=== PATIENT | male | born 1990 | race Caucasian/White ===

== ENCOUNTER 2019-01-03 14:21 | Observation (INO) | payer OTHER ==
[~2019-01-03] VITALS: Ht 170.2 cm; Wt 84.5 kg
[2019-01-03] MEDS ORDERED: KETOROLAC 30 MG/ML VIAL (J1885) IV ONE (14:45)
[2019-01-03] MEDS ORDERED: ALPR0.5T3 PO (15:04)
[2019-01-03] MEDS ORDERED: BRIN10TA4 PO (15:04)
[2019-01-03 15:11] LABS: BASO # 0.1 10^3/uL (0.0-0.2); BASO % 0.3 % (0.0-1.0); HEMATOCRIT 45.2 % (42.0-52.0); HEMOGLOBIN 15.8 g/dl (13.5-17.5); LYMPH # 1.4 10^3/uL (1.5-4.5); LYMPH % 8.7 % (24.0-44.0); MEAN CORPUSCULAR HEMOGLOBIN 30.6 pg (27.0-33.0); MEAN CORPUSCULAR VOLUME 87.4 fl (80.0-96.0); MONO # 0.8 10^3/uL (0.0-0.8); MONO % 4.9 % (0.0-5.0); NEUTROPHILS # 14.1 10^3/uL (1.8-7.7); NEUTROPHILS % 85.8 % (36.0-66.0); PLATELET COUNT, AUTOMATED 401 10^3/uL (150-450); RED BLOOD COUNT 5.17 10^6/uL (4.30-6.10); WHITE BLOOD COUNT 16.5 10^3/uL (4.0-10.0)
[2019-01-03] MEDS ORDERED: ACETAMINOPHEN *IV* 1,000 MG in IV 1 EA IV ONE (15:15)
[2019-01-03] MEDS ORDERED: ISOVUE-370 76% 100ML VIAL (Q9967) As Ordered ONE ×2 (15:24→15:49)
[2019-01-03 15:26] LABS: BLOOD UREA NITROGEN 16 MG/DL (7-18); CALCIUM LEVEL 9.9 MG/DL (8.5-10.1); CARBON DIOXIDE LEVEL 24 MEQ/L (21-32); CHLORIDE LEVEL 103 MEQ/L (98-107); CREATININE FOR GFR 1.07 MG/DL (0.70-1.30); GLOMERULAR FILTRATION RATE > 60.0 (>60); GLUCOSE, FASTING 121 MG/DL (70-100); POTASSIUM SERUM 3.6 MEQ/L (3.5-5.1); SODIUM LEVEL 139 MEQ/L (136-145)
[2019-01-03] MEDS ORDERED: METOCLOPRAMIDE INJ 10MG/2ML VIAL (J2765) IV ONE (15:30)
--- NOTE | 2019-01-03 16:27 | REP ---
CT ABDOMEN AND PELVIS WITHOUT CONTRAST: CT abdomen and pelvis was performed without oral or IV contrast. Sagittal and coronal reconstruction images are performed. In the visualized lung bases there is a nodular infiltrate in the right lower lobe. There also appear to be enlarged hilar and mediastinal lymph nodes present. The heart is not enlarged. There is no pleural effusion. The liver, spleen, adrenals, pancreas and left kidney are unremarkable. There is mild right hydroureteronephrosis. No stone is seen in the ureter or bladder. I suspect a recent calculus has passed through the right urinary tract and bladder No bladder calculus is seen. Urinary bladder is relatively collapsed. There is no abdominal aortic aneurysm. There is no periaortic adenopathy. There is no free air or free fluid. There is no bowel wall thickening. There is no evidence of appendicitis, the appendix is normal. No pelvic mass is seen. IMPRESSION: Mild right hydroureteronephrosis. No ureteral or bladder calculus seen at this time, likely there was a stone that has recently passed. Note is made of bilateral hilar and mediastinal adenopathy with a nodular infiltrate in the right lower lobe. Recommend CT of the chest with IV contrast to further evaluate. Electronically Signed by Harish Paniagua MD 01/04/2019 09:30 A
--- NOTE | 2019-01-03 17:00 | REP ---
CT CHEST WITH IV CONTRAST: TECHNIQUE: Axial contrast enhanced images from the thoracic inlet to the upper abdomen using 100 mL Isovue 370 intravenous contrast material with multiplanar reformations. Extensive mediastinal adenopathy is seen as well as bilateral hilar adenopathy. Largest lymph node in the AP window measures 2.4 cm in short axis. In the inferior left hilum the largest lymph node measures 2.5 cm in short axis. Largest right hilar lymph node measures 2.5 cm in short axis. No axillary adenopathy is seen. Abdominal aorta is normal in caliber. There is no cardiomegaly. There is no pleural or pericardial effusion. There are mild ill-defined patchy infiltrates in both upper lobes. There are also some mild bilateral upper lobe reticular nodular opacities. There is a somewhat nodular patchy infiltrate in the superior segment of the right lower lobe. The inferior lung bases appear spared. IMPRESSION: Extensive mediastinal and bilateral hilar adenopathy. There are mild patchy bilateral upper lobe infiltrates with scattered mild reticular nodular opacities in both upper lobes. There is mild patchy ill-defined nodular infiltrate in the superior segment of the right lower lobe. Differential diagnosis would include multiple neoplastic and non-neoplastic etiologies. Recommend pulmonary consultation. Electronically Signed by Harish Paniagua MD 01/04/2019 09:31 A
[2019-01-03 17:05] LABS: ALBUMIN 4.4 GM/DL (3.2-5.2); ALT/SGPT 28 U/L (12-78); BILIRUBIN,TOTAL 1.2 MG/DL (0.2-1.0); LDH LACTATE DEHYDROGENASE 148 U/L (87-241); TOTAL PROTEIN 7.1 GM/DL (6.4-8.2)
[2019-01-03] MEDS ORDERED: ACETAMINOPHEN TAB 650MG DOSE (2X325MG) PO PRN (19:15)
[2019-01-03] MEDS: ALPRAZolam 0.5 MG TAB PO SCH (19:56)
--- NOTE | 2019-01-03 21:51 | HPEPDOC ---
General Date of Admission Jan 03, 2019 at 14:22 Date of Service: Jan 03, 2019 Chief Complaint The patient is a 28-year-old male admitted with a reason for visit of Hilar Adenopathy. Source: Patient Exam Limitations: No limitations Timing/Duration: Unsure Severity: Mild Associated Symptoms: Other (the patient has had flank pain associated with his renal stone, but otherwise no symptoms at all) History of Present Illness This is a 28-year-old male who presented with flank pain, nausea and vomiting. The patient has a history of nephrolithiasis with prior episode in 2014. Patient underwent imaging upon presentation to the emergency room and was found to have right hydroureteronephrosis. It appears he has already passed his renal stone. He did not note any other associated symptoms such as dysuria or hematuria. Upon radiologic evaluation. There is incidental finding of hilar adenopathy and some other unusual pulmonary lesions. Concern was raised for infection versus malignancy. The patient relates that at times he feels cold but otherwise has not had any fever, cough, wheezing, or rash. He's had minimal weight loss related to his medications. Otherwise, his appetite has been completely normal. The patient's other principal complaint is that of episodes of depression, panic and anxiety associated with his underlying mood disorders. He also notes having an adverse reaction to Lamictal, stating that it made him feel cloudy. Home Medications Scheduled Alprazolam (Alprazolam) 0.5 Mg Tablet, 0.5 MG PO QID, (Reported) Vortioxetine Hydrobromide (Trintellix) 10 Mg Tablet, 10 MG PO QPM, (Reported) Allergies Coded Allergies: No Known Allergies (Verified Allergy, Unknown, 01/03/19) Past Medical History Medical History The patient does not really have a medical history. Psychiatric history is noted for high functioning autism, ADHD, bipolar disorder, OCD, depression, panic and anxiety. Surgical History The patient has not had any surgeries. Family History Significant Family History: Asthma, Other (diverticular disease) Social History * Smoker: quit greater than 1 year (tobacco use is been remote for 7 years) Alcohol: sober (for 4 years) Drugs: denies Recent Travel/Sick Contacts: Denies: Recent travel, Recent sick contacts Psychosocial History: Anxiety, Att. deficit disorder, Bipolar, Depression, Obsess/compul disorder The patient is not currently employed. He has worked in a car dealership. A-FIB/CHADSVASC A-FIB History Current/History of A-Fib/PAF?: No Current PO Anticoag Therapy: No Review of Systems Other systems 10 system review is otherwise negative except as stated in the HPI. Physical Examination General Exam: Positive: Alert, Cooperative, No Acute Distress Eye Exam: Positive: PERRLA, Conjunctiva & lids normal, EOMI ENT Exam: Positive: Atraumatic, Mucous membr. moist/pink, Tongue Midline, Nares Patent Neck Exam: Positive: Supple, Other (no cervical adenopathy); Negative: JVD, thyromegaly Chest Exam: Positive: Clear to auscultation, Normal air movement, Other (no axillary or supraclavicular adenopathy) Heart Exam: Positive: Rate Normal, Regular Rhythm, Normal S1, Normal S2; Negative: Murmurs, Rubs Abdomen Exam: Positive: Normal bowel sounds, Soft; Negative: Tenderness, Hepatospenomegaly Extremity Exam: Positive: Normal pulses, Other (no inguinal adenopathy); Negative: Clubbing, Cyanosis, Edema Skin Exam: Positive: Nl turgor and temperature; Negative: Breakdown, Lesion Neuro Exam: Positive: Normal Gait, Normal Speech, Cranial Nerves 3-12 NL, Reflexes 2+ Psych Exam: Positive: Oriented x 3 (currently calm and cooperative, socially appropriate) Vital Signs Vital Signs Date Time Temp Pulse Resp B/P (MAP) Pulse Ox O2 Delivery O2 Flow Rate FiO2 01/03/19 20:38 97 114/70 (85) 95 01/03/19 17:51 Room Air 01/03/19 17:37 17 01/03/19 14:36 99.0 Laboratory Data Labs 24H Laboratory Tests 2 01/03/19 14:42: Immature Granulocyte % (Auto) 0.3, White Blood Count 16.5H, Red Blood Count 5.17, Hemoglobin 15.8, Hematocrit 45.2, Mean Corpuscular Volume 87.4, Mean Corpuscular Hemoglobin 30.6, Mean Corpuscular Hemoglobin Concent 35.0, Red Cell Distribution Width 12.9, Platelet Count 401, Neutrophils (%) (Auto) 85.8H, Lymphocytes (%) (Auto) 8.7L, Monocytes (%) (Auto) 4.9, Eosinophils (%) (Auto) 0.0, Basophils (%) (Auto) 0.3, Neutrophils # (Auto) 14.1H, Lymphocytes # (Auto) 1.4L, Monocytes # (Auto) 0.8, Eosinophils # (Auto) 0.0, Basophils # (Auto) 0.1, Nucleated Red Blood Cells % (auto) 0.0, Urine Color YELLOW, Urine Appearance HAZY, Urine pH 5.0, Urine Specific [place] 1.027, Urine Protein 1+H, Urine Glucose (UA) NEGATIVE, Urine Ketones 2+H, Urine Blood 3+H, Urine Nitrite NEGATIVE, Urine Bilirubin NEGATIVE, Urine Urobilinogen 0.2, Urine Leukocyte Esterase NEGATIVE, Urine WBC (Auto) 2, Urine RBC (Auto) 64H, Urine Hyaline Casts (Auto) 6, Urine Bacteria (Auto) NEGATIVE, Urine Squamous Epithelial Cells 0, Urine Calcium Oxalate Cryst (Auto) SMALL, Urine Mucus (Auto) LARGE, Urine Sperm (Auto) , Anion Gap 12, Glomerular Filtration Rate > 60.0, Blood Urea Nitrogen 16, Creatinine 1.07, Sodium Level 139, Potassium Level 3.6, Chloride Level 103, Carbon Dioxide Level 24, Calcium Level 9.9, Aspartate Amino Transf (AST/SGOT) 16, Alanine Aminotransferase (ALT/SGPT) 28, Lactate Dehydrogenase 148, Alkaline Phosphatase 74, Total Bilirubin 1.2H, Total Protein 7.1, Albumin 4.4, Albumin/Globulin Ratio 1.63 CBC/BMP Laboratory Tests 01/03/19 14:42 Red Blood Count 5.17, Mean Corpuscular Volume 87.4, Mean Corpuscular Hemoglobin 30.6, Mean Corpuscular Hemoglobin Concent 35.0, Red Cell Distribution Width 12.9, Neutrophils (%) (Auto) 85.8 H, Lymphocytes (%) (Auto) 8.7 L, Monocytes (%) (Auto) 4.9, Eosinophils (%) (Auto) 0.0, Basophils (%) (Auto) 0.3, Neutrophils # (Auto) 14.1 H, Lymphocytes # (Auto) 1.4 L, Monocytes # (Auto) 0.8, Eosinophils # (Auto) 0.0, Basophils # (Auto) 0.1, Calcium Level 9.9, Aspartate Amino Transf (AST/SGOT) 16, Alanine Aminotransferase (ALT/SGPT) 28, Lactate Dehydrogenase 148, Alkaline Phosphatase 74, Total Bilirubin 1.2 H, Total Protein 7.1, Albumin 4.4 Microbiology Microbiology 01/03/19 Blood Culture, Received Pending 01/03/19 Blood Culture, Received Pending Assessment/Plan 1. Nephrolithiasis. The patient appears to have passed a renal stone. There is residual right hydroureteral nephrosis. The patient's flank pain is essentially resolved. 2. Hilar adenopathy. This appears to be an incidental finding on CT scan. The patient is asymptomatic. We will obtain some screening laboratory data and discussed with the pulmonary service. The patient's differential is fairly wide and includes infection versus neoplasm. Plan / VTE VTE Prophylaxis Ordered?: No VTE Exclusion Mechanical Proph: Low Risk for VTE VTE Exclusion Pharmacological: At Low Risk for VTE Plan Diet: Continue Current Activity: Continue Current Diagnostics: Check Labs Anticipated Discharge: Home CONNOR JOAQUIN MD Jan 03, 2019 21:51
[2019-01-04 06:54] LABS: HEMATOCRIT 44.6 % (42.0-52.0); HEMOGLOBIN 15.4 g/dl (13.5-17.5); MEAN CORPUSCULAR HEMOGLOBIN 30.9 pg (27.0-33.0); MEAN CORPUSCULAR HGB CONC 34.5 g/dl (32.0-36.5); MEAN CORPUSCULAR VOLUME 89.6 fl (80.0-96.0); PLATELET COUNT, AUTOMATED 315 10^3/uL (150-450); RED BLOOD COUNT 4.98 10^6/uL (4.30-6.10); WHITE BLOOD COUNT 6.6 10^3/uL (4.0-10.0)
[2019-01-04 07:22] LABS: ALT/SGPT 23 U/L (12-78); BILIRUBIN,TOTAL 0.9 MG/DL (0.2-1.0); BLOOD UREA NITROGEN 14 MG/DL (7-18); C REACTIVE PROTEIN QUANTITATIV 0.42 MG/DL (0.00-0.30); CALCIUM LEVEL 8.9 MG/DL (8.5-10.1); CARBON DIOXIDE LEVEL 27 MEQ/L (21-32); CHLORIDE LEVEL 106 MEQ/L (98-107); CREATININE FOR GFR 0.84 MG/DL (0.70-1.30); GLOMERULAR FILTRATION RATE > 60.0 (>60); GLUCOSE, FASTING 65 MG/DL (70-100); LDH LACTATE DEHYDROGENASE 126 U/L (87-241); MAGNESIUM LEVEL 2.1 MG/DL (1.8-2.4); POTASSIUM SERUM 4.3 MEQ/L (3.5-5.1); SODIUM LEVEL 140 MEQ/L (136-145); TOTAL PROTEIN 6.5 GM/DL (6.4-8.2); URIC ACID 6.7 MG/DL (3.5-7.2)
[2019-01-04 07:32] LABS: ERYTHROCYTE SEDIMENTATION RATE 2 mm/hr (0-15)
[2019-01-04 08:51] VITALS: BP 106/65
[2019-01-04] MEDS: ALPRAZolam 0.5 MG TAB PO SCH (09:25)
--- NOTE | 2019-01-04 17:45 | DS.PDOC ---
Discharge Summary General Date of Admission Jan 03, 2019 at 14:22 Date of Discharge January 04, 2019 Discharge Summary PROCEDURES PERFORMED DURING STAY: . ADMITTING DIAGNOSES: 1. Nephrolithiasis. DISCHARGE DIAGNOSES: 1. Acute nephrolithiasis, resolved, residual right hydroureteral nephrosis, mediastinal and hilar lymphadenopathy suspicious for sarcoid. COMPLICATIONS/CHIEF COMPLAINT: Hilar Adenopathy. HISTORY OF PRESENT ILLNESS/HOSPITAL COURSE: This is a 28-year-old male who presented to the emergency room with flank pain, nausea and vomiting. Patient had a known history of nephrolithiasis. Evaluation by CT scan. He was found to have right hydroureteronephrosis. It appeared he had already passed a renal stone. His flank pain resolved and he did not require any further intervention. Additionally, there was incidental finding of hilar adenopathy and some other unusual pulmonary lesions. Additional CT scan imaging revealed extensive mediastinal lymphadenopathy as well. Concern was initially raised for infection versus malignancy. The patient was entirely asymptomatic. He did not have any fever, cough, congestion, wheezing, or sweats. Initial laboratory review showed his thyroid studies to be normal, lactic acid was normal at 0.9, sedimentation rate was 2, C-reactive protein was 0.4 to. Uric acid was normal at 6.7. LDH was normal at 126. He had transient leukocytosis likely reactive, white blood cell count settled at 6.6. Case was discussed with the pulmonary service who reviewed the patient's scans. Appearance was consistent with possible sarcoidosis. Plans are for the patient to follow up with pulmonary services next week for probable bronchoscopy and biopsy. Patient has significant psychiatric history inclusive of bipolar disorder, depression, panic, anxiety, OCD, ADHD. None of these conditions, however had remarkable effect during this hospital stay.. DISCHARGE MEDICATIONS: Please see below. ALLERGIES: Please see below. PHYSICAL EXAMINATION ON DISCHARGE: VITAL SIGNS: Please see below. GENERAL: Calm and in no distress HEENT: Neck is supple with no supraclavicular or cervical or axillary adenopathy, oral mucosa is moist, patient has good dentition CARDIOVASCULAR EXAMINATION: Regular rate and rhythm, no appreciable murmur RESPIRATORY EXAMINATION: Clear to auscultation, no wheezing or cough ABDOMINAL EXAMINATION: Soft, nontender, nondistended, no flank pain to percussion/palpation EXTREMITIES: No peripheral edema SKIN: No notable rashes or other lesions NEUROLOGICAL EXAMINATION: No focal neuromotor or sensory deficit PSYCHIATRIC EXAMINATION: Calm and cooperative. Again, in no distress LABORATORY DATA: Please see below. IMAGING: Mild right hydroureteronephrosis. No ureteral or bladder calculus seen at this time, likely there was a stone that has recently passed. Extensive mediastinal and bilateral hilar adenopathy. There are mild patchy bilateral upper lobe infiltrates with scattered mild reticular nodular opacities in both upper lobes. There is mild patchy ill-defined nodular infiltrate in the superior segment of the right lower lobe. Differential diagnosis would include multiple neoplastic and non-neoplastic etiologies. Recommend pulmonary consultation. PROGNOSIS: ACTIVITY: As tolerated. DIET: As tolerated DISCHARGE PLAN: Patient is to be discharged to home. No new medications are dispensed. Case was discussed with final assembly and packing supervisor, Dr. Vanessa Coleman who will see the patient in the office next week with arrangements for bronchoscopy and biopsy. DISPOSITION: 01 Home, Self-Care. DISCHARGE INSTRUCTIONS: 1. . ITEMS TO FOLLOWUP ON ON OUTPATIENT: 1. . DISCHARGE CONDITION: Stable. TIME SPENT ON DISCHARGE: Greater than 40 minute minutes. Vital Signs/I&Os Vital Signs Date Time Temp Pulse Resp B/P (MAP) Pulse Ox O2 Delivery O2 Flow Rate FiO2 01/04/19 08:51 98 16 106/65 (79) 99 Room Air 01/04/19 07:27 97.7 Laboratory Data Labs 24H Laboratory Tests 2 01/04/19 06:23: Nucleated Red Blood Cells % (auto) 0.0, Erythrocyte Sedimentation Rate 2, Anion Gap 7L, Glomerular Filtration Rate > 60.0, Lactic Acid Level 0.9, Blood Urea Nitrogen 14, Creatinine 0.84, Sodium Level 140, Potassium Level 4.3, Chloride Level 106, Carbon Dioxide Level 27, Calcium Level 8.9, Aspartate Amino Transf (AST/SGOT) 12, Alanine Aminotransferase (ALT/SGPT) 23, Lactate Dehydrogenase 126, Alkaline Phosphatase 70, Total Bilirubin 0.9, Uric Acid 6.7, Total Protein 6.5, Albumin 4.0, Magnesium Level 2.1, C-Reactive Protein, Quantitative 0.42H, Albumin/Globulin Ratio 1.60, Procalcitonin 0.06, Thyroid Stimulating Hormone (TSH) 2.510, Free Thyroxine 1.20 CBC/BMP Laboratory Tests 01/04/19 06:23 Red Blood Count 4.98, Mean Corpuscular Volume 89.6, Mean Corpuscular Hemoglobin 30.9, Mean Corpuscular Hemoglobin Concent 34.5, Red Cell Distribution Width 13.0, Calcium Level 8.9, Aspartate Amino Transf (AST/SGOT) 12, Alanine Aminotransferase (ALT/SGPT) 23, Lactate Dehydrogenase 126, Alkaline Phosphatase 70, Total Bilirubin 0.9, Uric Acid 6.7, Total Protein 6.5, Albumin 4.0 Microbiology Microbiology 01/03/19 Blood Culture, Received Pending 01/03/19 Blood Culture, Received Pending Discharge Medications Scheduled Alprazolam (Alprazolam) 0.5 Mg Tablet, 0.5 MG PO QID, (Reported) Vortioxetine Hydrobromide (Trintellix) 10 Mg Tablet, 10 MG PO QPM, (Reported) Allergies Coded Allergies: No Known Allergies (Verified Allergy, Unknown, 01/03/19) CONNOR JOAQUIN MD Jan 04, 2019 17:44
== END 2019-01-04 12:40 | disposition home or self-care (01) ==
LOC: EDBD 14:21 → M ED 14:21 → M ED INP 14:22 → M MS5PR 01-04 08:50
PROVIDERS: ADMIT Internal Medicine; ATTEND Internal Medicine
DX: N20.0 Calculus of kidney (principal); N13.39 Other hydronephrosis; R59.0 Localized enlarged lymph nodes; Z79.899 Other long term (current) drug therapy; Z87.891 Personal history of nicotine dependence; F84.0 Autistic disorder; F90.9 Attention-deficit hyperactivity disorder, unspecified type; F31.9 Bipolar disorder, unspecified; F42.9 Obsessive-compulsive disorder, unspecified; F32.9 Major depressive disorder, single episode, unspecified; F41.0 Panic disorder [episodic paroxysmal anxiety]
CPT/HCPCS: 36415; 71260; 74176; 80053; 81001; 82164; 83605; 83615; 83735; 84145; 84439; 84443; 84550; 85025; 85027; 85652; 86140; 87040; 96374; 96375; 99284; J0131; J1885; J2765; Q9967

== ENCOUNTER 2019-01-08 11:08 | Day surgery (SDC) | payer OTHER ==
[~2019-01-08] VITALS: Ht 170.2 cm; Wt 84.1 kg
[~2019-01-08 11:08] MED LIST: ALPR0.5T3 PO; BRIN10TA4 PO
[2019-01-08 12:24] LABS: BASO % 0.3 % (0.0-1.0); HEMATOCRIT 43.2 % (42.0-52.0); LYMPH # 1.1 10^3/uL (1.5-4.5); LYMPH % 15.3 % (24.0-44.0); MEAN CORPUSCULAR HEMOGLOBIN 31.3 pg (27.0-33.0); MEAN CORPUSCULAR HGB CONC 34.7 g/dl (32.0-36.5); MEAN CORPUSCULAR VOLUME 90.2 fl (80.0-96.0); MONO # 0.6 10^3/uL (0.0-0.8); MONO % 7.9 % (0.0-5.0); NEUTROPHILS # 5.3 10^3/uL (1.8-7.7); NEUTROPHILS % 76.1 % (36.0-66.0); PLATELET COUNT, AUTOMATED 337 10^3/uL (150-450); RED BLOOD COUNT 4.79 10^6/uL (4.30-6.10); WHITE BLOOD COUNT 6.9 10^3/uL (4.0-10.0)
[2019-01-08] MEDS ORDERED: PROPOFOL 200 MG/20 ML VIAL As Ordered ONE ×2 (12:26→13:21)
[2019-01-08] MEDS ORDERED: ROCURONIUM BROMIDE 50 MG/5 ML VIAL As Ordered ONE (12:26)
[2019-01-08] MEDS ORDERED: LIDOCAINE 2% INJ 100 MG/5 ML SDV (FOR ANES.) As Ordered ONE (12:27)
[2019-01-08] MEDS ORDERED: MIDAZOLAM INJ 2 MG/2 ML VIAL (J2250) As Ordered ONE ×2 (12:30→13:47)
[2019-01-08] MEDS ORDERED: CETACAINE SPRAY 5GM As Ordered ONE (12:30)
[2019-01-08] MEDS ORDERED: fentaNYL 100 MCG/2 ML INJECTION (J3010) As Ordered ONE ×2 (12:31→13:00)
[2019-01-08] MEDS ORDERED: LIDOCAINE VISCOUS 2% SOLN 15ML UDC As Ordered ONE (12:31)
[2019-01-08] MEDS ORDERED: EPINEPHrine INJ 1 MG/ML 1ML AMP As Ordered ONE (12:31)
[2019-01-08] MEDS ORDERED: LIDOCAINE 1% SDV INJ 30 ML VIAL As Ordered ONE (12:31)
[2019-01-08] MEDS ORDERED: THROMBIN SOLN 5,000 UNITS VIAL As Ordered ONE (12:32)
[2019-01-08] MEDS ORDERED: dexameTHASONE 4 MG/ML 1ML VIAL (J1100) As Ordered ONE (12:32)
[2019-01-08] MEDS ORDERED: ONDANSETRON 4MG/2ML VIAL (J2405) As Ordered ONE (12:32)
[2019-01-08] MEDS ORDERED: SUGAMMADEX SODIUM 500 MG/5 ML VIAL (BRIDION) As Ordered ONE (12:33)
[2019-01-08 12:47] LABS: INR 1.06; PROTHROMBIN TIME 13.5 SECONDS (11.8-14.0)
[2019-01-08 12:54] LABS: ALBUMIN 4.1 GM/DL (3.2-5.2); ALT/SGPT 20 U/L (12-78); BILIRUBIN,DIRECT 0.2 MG/DL (0.0-0.2); BILIRUBIN,TOTAL 0.7 MG/DL (0.2-1.0); CREATININE FOR GFR 0.79 MG/DL (0.70-1.30); GLOMERULAR FILTRATION RATE > 60.0 (>60); TOTAL PROTEIN 6.7 GM/DL (6.4-8.2)
[2019-01-08 13:39] LABS: FREE T4 1.34 NG/DL (0.76-1.46)
[2019-01-08] MEDS ORDERED: LR 1,000 ML IV SCH (14:30)
[2019-01-08] MEDS ORDERED: PROMETHAZINE INJ 25 MG/ML VIAL (J2550) IV PRN (14:30)
[2019-01-08] MEDS ORDERED: fentaNYL 100 MCG/2 ML INJECTION (J3010) IV PRN (14:30)
[2019-01-08 14:36] VITALS: BP 135/93
--- NOTE | 2019-01-09 07:42 | REP ---
PORTABLE AP CHEST, 1 VIEW REASON: Post-op in PACU. COMPARISON: CT chest with contrast 01/03/2019. There is similar appearance of bulky bilateral hilar lymphadenopathy. The lungs are underinflated. There is bilateral basilar atelectasis. There is no evidence of pneumothorax. The osseous structures are intact. Electronically Signed by Sourav Costa MD 01/09/2019 08:01 A
--- NOTE | 2019-01-09 08:11 | REP ---
CHEST X-RAY: Eight views fluoroscopic images. HISTORY: Abnormal x-ray. 41 seconds of fluoroscopy time is reported. FINDINGS: A sequence of eight last image hold fluoroscopically obtained spot radiographs of the right upper lung document bronchoscopic manipulation. Electronically Signed by Mert Reyes MD 01/09/2019 09:10 A
--- NOTE | 2019-01-09 11:38 | ROOR ---
Patient Name: MONTANA KNIGHT Procedure Date: 01/08/2019 12:46 PM Admit Type: Outpatient Note Status: Finalized Attending MD: Vanessa Coleman MD Procedure: Bronchoscopy Indications: Bilateral infiltrate, Bilateral hilar lymphadenopathy, Mediastinal adenopathy, Paratracheal adenopathy Providers: Vanessa Coleman MD (Doctor) Referring MD: 1. No Referring Physician 1. No Referring Physician, Admin. (Referring MD) Requesting Physician: Medicines: General Anesthesia, Cetacaine topical Complications: No immediate complications. Estimated blood loss: Minimal Procedure: Pre-Anesthesia Assessment: - Prior to the procedure, a History and Physical was performed, and patient medications and allergies were reviewed. The patient's tolerance of previous anesthesia was also reviewed. The risks and benefits of the procedure and the sedation options and risks were discussed with the patient. All questions were answered, and informed consent was obtained. Prior Anticoagulants: The patient has taken no previous anticoagulant or antiplatelet agents. ASA Grade Assessment: II - A patient with mild systemic disease. After reviewing the risks and benefits, the patient was deemed in satisfactory condition to undergo the procedure. The Bronchoscope was introduced through the mouth, via the endotracheal tube (the patient was intubated for the procedure) and advanced to the tracheobronchial tree of both lungs. The procedure was accomplished without difficulty. The patient tolerated the procedure well. Findings: The endotracheal tube is in good position. The visualized portion of the trachea is of normal caliber. The judy is sharp. The tracheobronchial tree was examined to at least the first subsegmental level. Bronchial mucosa was normal; the left upper lobe with anatomic variant of three bronchial segments. There are no endobronchial lesions, and no secretions. There was some extrinisic narrowing of bronchial segmental airways in left upper lobe, right middle lobe and left lower lobe likely secondary to enlarged hilar and mediastinal lymph nodes. Transbronchial biopsies of the lung were performed in the apical segment of the right upper lobe using forceps and sent for histopathology examination. The procedure was guided by fluoroscopy. Transbronchial biopsy technique was selected because the sampling site was not visible endoscopically. An endobronchial ultrasound endoscope was utilized in order to assist with fine needle aspiration in the subcarinal area and in the right hilum. Transbronchial needle aspirations of a lymph nodes were performed in the subcarinal area and in the right hilum using an Olympus EBUS-TBNA 21 gauge needle and sent for routine cytology. The procedure was guided by ultrasound. Transbronchial needle aspiration technique was selected because the sampling site was not visible endoscopically. Estimated blood loss: minimal. Impression: - Bilateral hilar lymphadenopathy - Mediastinal adenopathy - Paratracheal adenopathy - Bilateral infiltrates in lungs - The airway examination was normal. - Transbronchial lung biopsies were performed. - Endobronchial ultrasound was performed. - A transbronchial needle aspiration was performed. Recommendation: - Follow up with bronchoscopist as previously scheduled. Attending Participation: I personally performed the entire procedure. Vanessa Coleman MD 01/09/2019 11:38:17 AM Number of Addenda: 0 Note Initiated On: 01/08/2019 12:46 PM
[2019-01-14 00:06] LABS: ASPERGILLUS FLAVUS ABY Negative (Neg:<1:1); ASPERGILLUS FUMIGATUS ABY Negative (Neg:<1:1); ASPERGILLUS NIGER ABY Negative (Neg:<1:1); BLASTOMYCES ANTIBODY LEVEL Negative (Neg:<1:1); CRYPTOCOCCUS ANTIGEN SER Negative (Negative); HISTOPLASMOSIS ANTIBODY Negative (Neg:<1:1)
== END 2019-01-08 15:11 | disposition home or self-care (01) ==
LOC: M SDC 11:08
PROVIDERS: ATTEND Internal Medicine Pulmonary Disease
DX: D14.31 Benign neoplasm of right bronchus and lung (principal); I88.8 Other nonspecific lymphadenitis; R91.8 Other nonspecific abnormal finding of lung field; Z87.891 Personal history of nicotine dependence; F31.9 Bipolar disorder, unspecified; F41.9 Anxiety disorder, unspecified; F90.9 Attention-deficit hyperactivity disorder, unspecified type; F84.0 Autistic disorder; F42.9 Obsessive-compulsive disorder, unspecified; Z88.8 Allergy status to other drugs, medicaments and biological substances
CPT/HCPCS: 31628; 31629; 31652; 36415; 71045; 76000; 80076; 82164; 82306; 82310; 82565; 82652; 84439; 84443; 85025; 85610; 86606; 86612; 86635; 86698; 87899; 88173; 88305; 88312; J1100; J2250; J2405; J3010

== ENCOUNTER → 2019-03-07 | Outpatient (CLI) | payer OTHER ==
--- NOTE | 2019-03-07 08:51 | PFTRPT ---
Height: 67.50 Inches Weight: 171.00 Lbs BSA: 1.90 Diagnosis: D86.2 DATE OF PROCEDURE: 03/07/2019 ORDERED BY: Dr. Vanessa Coleman Spirometry: Pre and post bronchodilator study of excellent technical quality. Forced vital capacity normal. FEV1 in proportion. Obstructive index is, therefore, normal. Flow Volume Loop: Expiratory limb of the flow volume loop is reasonably normal. No significant bronchodilator response identified. Lung Volumes: Total lung capacity normal. Residual volume is in proportion. Diffusing Capacity: Diffusing capacity normal. Hemoglobin: Hemoglobin acceptable at 14.7. Airway Mechanics: Airway resistance and conductance are normal. IMPRESSION: Essentially normal study. MTDD
== END ==
LOC: M CARPUL 06:29
PROVIDERS: ATTEND Internal Medicine Pulmonary Disease
DX: D86.2 Sarcoidosis of lung with sarcoidosis of lymph nodes (principal)

== ENCOUNTER 2019-06-08 12:54 | Emergency (ER) | payer OTHER ==
[~2019-06-08] VITALS: Ht 170.2 cm; Wt 79.5 kg
[2019-06-08] MEDS ORDERED: ARIP1TAB4 (13:03)
[2019-06-08] MEDS ORDERED: ARIP1TAB6 (13:03)
[2019-06-08] MEDS ORDERED: FLUTISP (13:03)
[2019-06-08 15:21] VITALS: BP 119/80
--- NOTE | 2019-06-09 20:32 | ECGEPIP ---
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
== END 2019-06-08 15:25 | disposition home or self-care (01) ==
LOC: M ED 12:54
DX: F13.10 Sedative, hypnotic or anxiolytic abuse, uncomplicated (principal); F31.9 Bipolar disorder, unspecified; F90.9 Attention-deficit hyperactivity disorder, unspecified type; Z79.899 Other long term (current) drug therapy; Z88.8 Allergy status to other drugs, medicaments and biological substances; F17.210 Nicotine dependence, cigarettes, uncomplicated

== ENCOUNTER → 2020-03-31 | Outpatient (CLI) | payer OTHER ==
[~2020-03-31] MED LIST changes: +ARIP1TAB4; +ARIP1TAB6; +FLUTISP
--- NOTE | 2020-03-31 14:33 | REP ---
INDICATION: SARCOIDOSIS OF LUNG, FILE RM. COMPARISON: AP chest 01/08/2019, CT 01/03/2019 TECHNIQUE: Noncontrast chest imaging with coronal and sagittal reconstructions provided. FINDINGS: The ill-defined patchy infiltrates in the bilateral lungs are and nearly completely resolved compared to the previous study only minimal residual evident. There is no pleural effusion. Minor dependent atelectatic changes posteriorly in the lower lung zones. There is no pleural based mass calcified pleural plaque apical scarring or pneumothorax. No definite parenchymal nodules at this time. Heart size not grossly enlarged there is no pericardial thickening or effusion. The aorta is without aneurysm. A bulky bilateral hilar nodes are much improved. The right paratracheal, precarinal, AP window and prevascular space nodes are also much improved in size. For example previously noted 16 mm short axis prevascular node now measures 7 mm in short axis decrease in size of the hilar nodes is even greater and loss of confluence noted. Axilla and supraclavicular regions show no pathologic sized nodes. Bone windows show thoracic and lower cervical spine, sternum, manubrium, clavicles, scapulae, humeral heads and ribs all grossly intact. Upper abdominal structures show no hepatosplenomegaly, focal lesion, calcified gallstone or pancreatic abnormality, adrenal glands and upper poles kidneys were intact. No hiatal hernia. IMPRESSION: 1. Marked improvement in the bilateral hilar confluent bulky adenopathy and pattern of ill-defined patchy interstitial and reticulonodular infiltrates in the lungs since CT 15 months ago. No effusion, definite lung nodules, pleural based mass or new findings. 2. No new lesions are identified. Upper abdominal structures grossly unremarkable. Bones intact. <Electronically signed by Shawn López > 03/31/20 [id number]
== END ==
LOC: M RAD 13:38
PROVIDERS: ATTEND Internal Medicine Pulmonary Disease
DX: D86.2 Sarcoidosis of lung with sarcoidosis of lymph nodes (principal)

== ENCOUNTER → 2020-04-28 | Outpatient (CLI) | payer OTHER ==
--- NOTE | 2020-04-28 13:42 | PFTRPT ---
Height: 67.00 Inches Weight: 194.00 Lbs BSA: 2.00 Diagnosis: D86.2 DATE: 04/28/2020 ORDERING PHYSICIAN: Dr. Vanessa Coleman Pre and post bronchodilator studies have excellent technical quality. Forced vital capacity is normal. FEV1 is in proportion. Obstructive index is therefore normal. Expiratory limit of the flow-volume loop is normal. No significant bronchodilator response is identified. Total lung capacity is normal. Residual volume generally in proportion. Diffusing capacity is normal. Hemoglobin is acceptable at 13.7. Airway resistance and conductance are normal. IMPRESSION: Essentially normal study. MTDD
== END ==
LOC: M CARPUL 13:00
PROVIDERS: ATTEND Internal Medicine Pulmonary Disease
DX: D86.2 Sarcoidosis of lung with sarcoidosis of lymph nodes (principal)

== ENCOUNTER 2023-11-21 12:46 | Emergency (ER) | payer OTHER ==
[~2023-11-21] VITALS: Ht 170.2 cm; Wt 80.4 kg
[~2023-11-21 12:46] MED LIST changes: +ARIP1TAB PO; +BUSP15TA47 PO; +CEFD300CAP PO; +FLOM0.4C39 PO; +KETO10TAB PO; +ONDA-282 PO; +PERC5TAB12 PO
[2023-11-21] MEDS: NS 1,000 ML IV ONE (13:40)
[2023-11-21 13:41] LABS: BASO % 0.1 % (0.0-1.0); HEMATOCRIT 43.5 % (42.0-52.0); HEMOGLOBIN 15.1 g/dl (13.5-17.5); LYMPH % 8.2 % (24.0-44.0); MEAN CORPUSCULAR HEMOGLOBIN 31.5 pg (27.0-33.0); MEAN CORPUSCULAR HGB CONC 34.7 g/dl (32.0-36.5); MEAN CORPUSCULAR VOLUME 90.8 fl (80.0-96.0); MONO # 0.5 10^3/uL (0.0-0.8); MONO % 4.5 % (2.0-8.0); NEUTROPHILS # 10.4 10^3/uL (1.5-8.5); NEUTROPHILS % 86.8 % (36.0-66.0); PLATELET COUNT, AUTOMATED 327 10^3/uL (150-450); RED BLOOD COUNT 4.79 10^6/uL (4.30-6.10); WHITE BLOOD COUNT 11.9 10^3/uL (4.0-10.0)
[2023-11-21 14:02] LABS: AMPHETAMINES LEVEL URINE NEGATIVE (NEGATIVE); BARBITURATES URINE NEGATIVE (NEGATIVE); BENZODIAZEPINES URINE NEGATIVE (NEGATIVE); CANNABINOIDS URINE POSITIVE (NEGATIVE); COCAINE METABOLITE URINE NEGATIVE (NEGATIVE); METHADONE URINE NEGATIVE (NEGATIVE); OPIATES URINE NEGATIVE (NEGATIVE); PHENCYCLIDINE URINE NEGATIVE (NEGATIVE)
[2023-11-21 14:05] LABS: ETHYL ALCOHOL (ETHANOL) < 0.003 % (0.000-0.010)
[2023-11-21 14:06] LABS: SALICYLATE LEVEL < 3.0 MG/DL (<30)
[2023-11-21 14:07] LABS: ALBUMIN 4.3 G/DL (3.2-5.2); ALKALINE PHOSPHATASE 77 U/L (46-116); ALT/SGPT 22 U/L (7.0-40); AST/SGOT 16 U/L (<34); BILIRUBIN,DIRECT 0.3 MG/DL (<0.4); BILIRUBIN,TOTAL 0.8 MG/DL (0.3-1.2); BLOOD UREA NITROGEN 13 MG/DL (9-23); CALCIUM LEVEL 9.7 MG/DL (8.5-10.1); CARBON DIOXIDE LEVEL 27 MMOL/L (20-31); CHLORIDE LEVEL 105 MMOL/L (98-107); GLOMERULAR FILTRATION RATE > 60.0 (>60); GLUCOSE, FASTING 132 MG/DL (60-100); POTASSIUM SERUM 3.4 MMOL/L (3.5-5.1); SODIUM LEVEL 139 MMOL/L (136-145); TOTAL PROTEIN 6.7 G/DL (5.7-8.2)
[2023-11-21 14:10] LABS: CPK CREATINE PHOSPHOKINASE 110 U/L (46-171)
[2023-11-21 16:16] VITALS: O2SAT 99
[2023-11-21 16:21] VITALS: BP 139/94; TEMP 98.3
== END 2023-11-21 16:43 | disposition home or self-care (01) ==
LOC: EDBD 12:46 → M ED 12:46
DX: F12.129 Cannabis abuse with intoxication, unspecified (principal); K21.9 Gastro-esophageal reflux disease without esophagitis; F41.9 Anxiety disorder, unspecified; F32.9 Major depressive disorder, single episode, unspecified; F84.5 Asperger's syndrome; Z87.442 Personal history of urinary calculi; Z79.899 Other long term (current) drug therapy; Z88.8 Allergy status to other drugs, medicaments and biological substances